=== PATIENT | male | born 1980 | race Two or more races ===

== ENCOUNTER 2017-06-05 12:06 | Emergency (ER) | payer SELFPAY ==
[~2017-06-05] VITALS: Ht 154.9 cm; Wt 63.5 kg
[2017-06-05 12:26] VITALS: BP 125/80
--- NOTE | 2017-06-05 12:40 | Emergency Room Report ---
History of Present Illness General Chief Complaint: General Complaint Source: Patient, Medical Record Present Illness HPI The patient is a 36-year-old male brought in by EMS for possible alcohol intoxication. The patient was found on the street and was sent to smell of alcohol. He was seen at another emergency department yesterday for alcohol intoxication. Upon being picked up, he complained of cough. He denies to say how much alcohol he consumed today. He is not being cooperative with questioning Allergies: Coded Allergies: No Known Allergies (Unverified , 06/05/17) Patient History Past Medical History: see triage record Pertinent Family History: none Social History: Reports: alcohol use Reviewed Nursing Documentation: PMH: Agreed, PSxH: Agreed Review of Systems All Other Systems: limited Physical Exam Vital Signs Date Time Temp Pulse Resp B/P (MAP) Pulse Ox O2 Delivery O2 Flow Rate FiO2 06/05/17 11:59 98.6 127 28 125/80 100 Room Air Sp02 EP Interpretation: reviewed, normal General Appearance: no apparent distress, alert, GCS 15, non-toxic Head: normocephalic, atraumatic Eyes: bilateral eye normal inspection, bilateral eye PERRL ENT: hearing grossly normal, normal pharynx, no angioedema, normal voice Respiratory: chest non-tender, lungs clear, normal breath sounds, speaking full sentences Cardiovascular #1: regular rate, rhythm, no edema Musculoskeletal: back normal, gait/station normal, normal range of motion, non- tender Neurologic: alert, responsive, motor strength/tone normal, sensory intact Psychiatric: other - Active and somewhat aggressive Skin: normal color, no rash, warm/dry, well hydrated Medical Decision Making PA Attestation Dr. Oneal is my supervising physician. Patient management was discussed with my supervising physician Diagnostic Impression: Primary Impression: Alcohol intoxication Qualified Codes: F10.920 - Alcohol use, unspecified with intoxication, uncomplicated ER Course The patient is a 36-year-old male brought in by EMS for possible alcohol intoxication DDx considered but not limited to: acute alcohol intoxication, hepatic encephalopathy, drug overdose, hypoglycemia, psychosis Physical exam: Afebrile. No apparent distress. Patient is lethargic and then becomes aggressive Head is normocephalic atraumatic. Pupils are equally round and reactive to light The patient is arousable by touch or name. Lungs are clear to auscultation bilaterally. No abnormal tenderness. Abdomen is soft. Otherwise exam is unremarkable The patient is given time to rest in the emergency department and is given Haldol. He has now rested for several hours Upon reevaluation, patient is to drinking vodka. The patient be discharged home and given ER precautions. Patient was given advice on alcohol addiction Chest X-Ray Diagnostic Results Chest X-Ray Diagnostic Results : Chest X-Ray Ordered: Yes # of Views/Limited/Complete: 1 View Indication: Other - cough EP Interpretation: Yes PA Xray: Interpretation reviewed, by supervising MD, and agrees with findings. Interpretation: no consolidation, no effusion, no pneumothorax, no acute cardiopulmonary disease Impression: No acute disease Electronically Signed by: Alon Mccartney PA-C Last Vital Signs Date Time Temp Pulse Resp B/P (MAP) Pulse Ox O2 Delivery O2 Flow Rate FiO2 06/05/17 12:26 98.6 28 125/80 100 Room Air 06/05/17 11:59 127 Status: improved Disposition: HOME, SELF-CARE Condition: Improved ALON MCCARTNEY Jun 05, 2017 12:40
[2017-06-05] MEDS ORDERED: Haloperidol 5mg/ml Inj ONE (12:50)
[2017-06-05] MEDS ORDERED: Haloperidol 5mg/ml Inj IM ONE (13:00)
[2017-06-05 17:58] VITALS: BP 121/77
--- NOTE | 2017-06-06 11:04 | Diagnostic Imaging Report ---
Indication: Cough Technique: XRAY Chest 1v Comparison: None Findings: Limited exam with low lung volumes which exaggerate heart size and vascular markings. Heart size is not reliably assessed. Mediastinal contours appear sharp. Question pulmonary vascular congestion. No definite focal consolidation. No pleural effusion or pneumothorax. No acute osseous abnormality seen. Impression: Limited exam with low lung volumes. Heart size not reliably assessed. Question pulmonary vascular congestion. No definite focal consolidation. Repeat exam with improved inspiratory effort is recommended as clinically indicated for better evaluation.
== END 2017-06-05 18:00 | disposition home or self-care (01) ==
LOC: EDBD 12:06 → EMR 12:37
DX: F10.129 Alcohol abuse with intoxication, unspecified (principal)
CPT/HCPCS: 71010; 96372; 99283; J1630